=== PATIENT | female | born 2005 | race Caucasian/White ===

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

== ENCOUNTER 2024-01-02 14:44 | Emergency (ER) | payer OTHER, MEDICAID, SELFPAY ==
--- NOTE | ~2024-01-02 | US_ITS ---
US OB <= 14 weeks fetus DATE: 01/02/2024 17:08 INDICATION: Right lower quadrant abdominal pain TECHNIQUE: Real-time imaging and Doppler analysis COMPARISON: None FINDINGS: There is a live perez intrauterine gestation, with normally shaped gestational sac, fet al pole, cardiac motion with heart rate 171 bpm. Yolk sac is visualized. Negley-rump length measures 1.05 cm consistent with 7 weeks 1 day estimated gestational age. The uterus measures 8.1 cm sagittal by 5.3 cm AP by 8.2 cm transverse dimension. Right ovary measures 3.4 x 2.6 x 2 cm. Left ovary measures 3.2 x 2.4 x 2.8 cm. There is suggestion of a corpus luteum cyst of the left ovary . No abnormal free pelvic fluid collection is noted. IMPRESSION: Early intrauterine gestation, estimated gestational age of 7 weeks 1 day Reviewed, dictated and finalized at [facility]. Reviewed, dictated and finalized at [facility].
--- NOTE | ~2024-01-02 | US_ITS ---
US_ABDRLQ_US DATE: 01/02/2024 18:15 INDICATION: Right lower quadrant abdominal pain TECHNIQUE: Real-time and color flow imaging of the abdomen in the right lower quadrant. The area of p ain was performed. COMPARISON: None FINDINGS: There is limited evaluation of the right lower quadrant due to interference from bowel gas. No suspicious mass or abnormal fluid collection is evident. The appendix is not definitively identif ied. IMPRESSION: Limited examination does not definitively confirm or exclude appendicitis. Reviewed, dictated and finalized at [facility]. Reviewed, dictated and finalized at [facility]. IMPRESSION: Limited examination does not definitively confirm or exclude append icitis.
[2024-01-02 14:49] VITALS: BP 160/83; PULSE 109; RESP 18; TEMP 36.6; O2SAT 100
[2024-01-02 15:02] VITALS: BP 145/96; PULSE 112; RESP 15; O2SAT 99
[2024-01-02 15:20] LABS: BEDSIDEPREGUCG Positive (Negative)
[2024-01-02 15:24] LABS: Basophils Absolute Auto 0.1 K/mm3 (0.0-0.1); Basophils Percent Auto 0.5 % (0.2-1.2); Eosinophils Absolute Auto 0.3 K/mm3 (0-0.3); Eosinophils Percent Auto 2.1 % (0-4.4); Hematocrit 37.1 % (37.0-47.0); Immature Granulocyte Absolute 0.05 K/mm3 (0.00-0.031); Immature Granulocyte Percent A 0.4 % (0-0.5); Lymphocytes Absolute Auto 2.53 K/mm3 (0.9-3.2); Lymphocytes Percent Auto 19.8 % (18.3-44.2); Mean Corpuscular HGB Conc 32.3 g/dl (32-36); Mean Corpuscular Hemoglobin 26.9 pg (26-34); Mean Corpuscular Volume 83.2 fl (80-100); Mean Platelet Volume 8.7 fl (7.4-10.4); Monocytes Absolute Auto 0.8 K/mm3 (0.1-0.6); Monocytes Percent Auto 6.2 % (2.6-8.5); Platelet Count Result 411 k/mm3 (150-375); Red Blood Count 4.46 M/mm3 (4.2-5.4); Red Cell Distribution Width 15.1 % (11.5-14.5); White Blood Count 12.8 K/mm3 (4.5-10.0)
[2024-01-02 15:32] LABS: Add Urine Microscopic? YES; Appearance Urine Cloudy (Clear); Bacteria Urine None Seen /hpf; Bilirubin Urine Negative (Negative); Blood Urine Negative (Negative); Color Urine Yellow (Yellow); Glucose Urine UA Negative (Negative); Ketones Urine Negative (Negative); Leukocyte Esterase Ur Negative LEU/UL (Negative); Nitrate Urine Negative (Negative); Non Pathogenic Casts 0-2; Protein Urine Negative (Negative); RBC Urine 0-2 /hpf (0-2); Specific Grav Ur 1.016 (1.001-1.035); Squamous Epithelial Cell Urine None Seen /hpf (Few); WBC Urine 0-5 /hpf (0-3); pH Urine 7.5 (5.0-9.0)
[2024-01-02 15:35] LABS: Alanine Aminotransferase 19 U/L (6-35); Albumin Level 4.3 g/dL (3.5-5.1); Alkaline Phosphatase 65 U/L (38-126); Anion Gap 10 mmol/L (4-12); Aspartate Amino Transferase 25 U/L (14-36); Bilirubin,Total 0.3 mg/dL (0.2-1.3); Blood Urea Nitrogen 9 mg/dL (7-17); Calcium 9.2 mg/dL (8.4-10.2); Carbon Dioxide 23 mmol/L (22-30); Chloride 102 mmol/L (98-107); Estimated CRCL calculation 125 ml/min; Estimated Glomerular Filt Rate > 60; Glucose 83 mg/dL (65-110); Lipase 111 U/L (23-300); Potassium 3.6 mmol/L (3.4-5.0); Sodium 135 mmol/L (137-145)
[2024-01-02 17:19] LABS: Basophils Absolute Auto 0.1 K/mm3 (0.0-0.1); Basophils Percent Auto 0.5 % (0.2-1.2); Eosinophils Absolute Auto 0.3 K/mm3 (0-0.3); Eosinophils Percent Auto 2.1 % (0-4.4); Hematocrit 36.6 % (37.0-47.0); Hemoglobin 12.1 g/dL (12.0-15.0); Immature Granulocyte Absolute 0.04 K/mm3 (0.00-0.031); Immature Granulocyte Percent A 0.3 % (0-0.5); Lymphocytes Absolute Auto 2.47 K/mm3 (0.9-3.2); Lymphocytes Percent Auto 19.1 % (18.3-44.2); Mean Corpuscular HGB Conc 33.1 g/dl (32-36); Mean Corpuscular Hemoglobin 27.4 pg (26-34); Mean Platelet Volume 8.8 fl (7.4-10.4); Monocytes Absolute Auto 0.9 K/mm3 (0.1-0.6); Monocytes Percent Auto 6.7 % (2.6-8.5); Neutrophils Absolute Auto 9.2 K/mm3 (1.3-6.7); Neutrophils Percent Auto 71.3 % (45.5-73.1); Platelet Count Result 409 k/mm3 (150-375); Red Blood Count 4.41 M/mm3 (4.2-5.4); White Blood Count 12.9 K/mm3 (4.5-10.0)
[2024-01-02 17:31] LABS: Alanine Aminotransferase 19 U/L (6-35); Albumin Level 4.4 g/dL (3.5-5.1); Alkaline Phosphatase 74 U/L (38-126); Anion Gap 11 mmol/L (4-12); Aspartate Amino Transferase 28 U/L (14-36); Bilirubin,Total 0.2 mg/dL (0.2-1.3); Blood Urea Nitrogen 8 mg/dL (7-17); Calcium 9.1 mg/dL (8.4-10.2); Carbon Dioxide 22 mmol/L (22-30); Chloride 104 mmol/L (98-107); Estimated CRCL calculation 125 ml/min; Estimated Glomerular Filt Rate > 60; Glucose 86 mg/dL (65-110); Potassium 3.9 mmol/L (3.4-5.0); Sodium 137 mmol/L (137-145)
--- NOTE | 2024-01-02 17:42 | ED.GENADULT ---
HPI - General Adult General Chief complaint: Abdominal Pain Stated complaint: abd pain, 8 weeks Time Seen by Provider: 01/02/24 15:26 History of Present Illness HPI narrative: This is a at approximately 8 weeks gestation presenting for abdominal pain. Started earlier today the patient developed pain in the right lower quadrant. It is a sharp stabbing pain that comes and goes repeatedly throughout the day. Is not associated with vaginal bleeding or discharge. She has not had a ultrasound to confirm the dislocation yet. She does not have an OBGYN. Related Data Home Medications Medication Instructions Recorded Confirmed dextroamphetamine-amphetamine ER 10 mg PO DAILY 08/20/22 08/20/22 10 mg 24hr capsule,extend release Allergies Allergy/AdvReac Type Severity Reaction Status Date / Time No Known Allergies Allergy Verified 01/02/24 15:01 [facility] Past Medical History Medical History (Updated 01/02/24 @ 18:43 by Fei Toro MD) No pertinent past medical history Exam Narrative: APPEARANCE: No apparent distress. Head: atraumatic. EYES: EOMI, NOSE: Atraumatic NECK: Trachea midline RESPIRATORY: No increased rate of breathing CARDIOVASCULAR: RRR, ABDOMINAL: Non-distended, mild tenderness in the right lower quadrant, rest of the abdomen is soft nontender no guarding rebound MUSCULOSKELETAl: No obvious deformities NEURO: Alert. Moving 4/4 extremities SKIN:: Warm, dry. Normal color PSYCHIATRIC: Normal affect Course Vital Signs Vital signs: Vital Signs Temperature 97.8 F 01/02/24 14:49 Pulse Rate 109 H 01/02/24 14:49 Respiratory Rate 18 01/02/24 14:49 Blood Pressure 160/83 H 01/02/24 14:49 Pulse Oximetry 100 01/02/24 14:49 Temperature 97.8 F 01/02/24 14:49 Pulse Rate 82 01/02/24 18:39 Respiratory Rate 16 01/02/24 18:39 Blood Pressure 145/90 H 01/02/24 18:39 Pulse Oximetry 100 01/02/24 18:39 Medical Decision Making [facility] Narrative Medical decision making narrative: -Course: 18-year-old female presenting with right lower quadrant pain in . Transvaginal ultrasound showed a live 7 week intrauterine fetus. Patient was informed of the results. Patient still has some mild tenderness in the right lower quadrant. Her white blood cell count was mildly elevated at 12.9. I discussed the possibility of appendicitis with the patient. She states that she frequently has abdominal pain and constipation that this feels similar. We attempted a right lower quadrant ultrasound were unable to pull and rule out appendicitis. I discussed the risks and benefits to mother and fetus of advanced imaging versus a wait and see approach. The patient is comfortable going home and if she develops worsening or constant pain in the right lower quadrant, fevers, nausea vomiting she will come back to the ED for re-evaluation. -DDX includes but is not limited to:Ectopic, appendicitis, constipation, colitis -Co-morbidities complicating care: -Independent interpretation of studies: White count 12.9 Other labs within normal limits Abdominal ultrasound indeterminate -Shared decision making / Disposition: Discharged Vital Signs Vital Signs: Vital Signs Temperature 97.8 F 01/02/24 14:49 Pulse Rate 109 H 01/02/24 14:49 Respiratory Rate 18 01/02/24 14:49 Blood Pressure 160/83 H 01/02/24 14:49 Pulse Oximetry 100 01/02/24 14:49 Temperature 97.8 F 01/02/24 14:49 Pulse Rate 82 01/02/24 18:39 Respiratory Rate 16 01/02/24 18:39 Blood Pressure 145/90 H 01/02/24 18:39 Pulse Oximetry 100 01/02/24 18:39 Lab Data 01/02/24 17:12 01/02/24 17:10 Labs: Lab Results 01/02/24 01/02/24 01/02/24 Range/Units 15:16 15:18 17:10 WBC 12.8 H (4.5-10.0) K/mm3 RBC 4.46 (4.2-5.4) M/mm3 Hgb 12.0 (12.0-15.0) g/dL Hct 37.1 (37.0-47.0) % MCV 83.2 (80-100) fl MCH 26.9 (26-34) pg
[2024-01-02 18:39] VITALS: BP 145/90; PULSE 82; RESP 16; O2SAT 100
[2024-01-02 19:22] VITALS: BP 141/91; PULSE 82; RESP 15; O2SAT 100
== END 2024-01-02 19:23 | disposition home or self-care (01) ==
PROVIDERS: Emergency Medicine; Emergency Provider Emergency Medicine
DX: O26.891 Other specified pregnancy related conditions, first trimester (principal); R10.31 Right lower quadrant pain; Z3A.01 Less than 8 weeks gestation of pregnancy
CPT/HCPCS: 36415; 76705; 76801; 80053; 81001; 81025; 83690; 84702; 85025; 85461; 86850; 86900; 86901; 99284